=== PATIENT | male | born 1960 | race Caucasian/White ===

== ENCOUNTER → 2021-06-22 | Outpatient (CLI) | payer OTHER ==
--- NOTE | 2021-06-22 18:08 | MR ---
EXAMINATION TYPE: MR knee LT wo con DATE OF EXAM: 06/22/2021 COMPARISON: None HISTORY: lt knee pain The planar multiecho imaging of the left knee without contrast. There is metal artifact from intramedullary saige in the distal femur. The collateral ligaments are int act. The knee joint spaces are fairly normal for age. The anterior posterior cruciate ligaments are o bscured somewhat by metal artifact. I see no definite tear. There is no evidence of any significant j oint effusion. The patella tendon is intact. There is no evidence of a fracture. Medial and lateral m enisci show small areas of increased signal within the substance but no tear extending to the surface . Impression: Previous surgery. No evidence of ligament or meniscal tear. Degenerative changes in the menisci. No f racture seen.
== END | disposition home or self-care (01) ==
LOC: RADMRIMAIN 15:19
PROVIDERS: ATTEND Orthopaedic Surgery
DX: M17.12 Unilateral primary osteoarthritis, left knee (principal)

== ENCOUNTER 2022-05-29 20:35 | Inpatient (IN) | payer OTHER ==
[2022-05-29] MEDS ORDERED: SODIUM CHLORIDE 0.9% 1,000 ML IV STA (20:44)
[2022-05-29 21:26] LABS: Basophils % (A) 0 %; Eosinophils % (A) 0 %; HCT 28.2 % (39.0-53.0); HGB 9.7 gm/dL (13.0-17.5); Hypochromasia Slight; Lymphocytes % (A) 7 %; MCH 30.7 pg (25.0-35.0); MCHC 34.5 g/dL (31.0-37.0); MCV 89.1 fL (80.0-100.0); Mean Platelet Volume 10.3; Monocytes # (A) 1.3 k/uL (0-1.0); Monocytes % (A) 9 %; Neutrophils # (A) 11.1 k/uL (1.3-7.7); Neutrophils % (A) 82 %; Platelet Count 290 k/uL (150-450); Poikilocytosis Slight; RBC 3.16 m/uL (4.30-5.90); RDW 14.1 % (11.5-15.5); WBC 13.6 k/uL (3.8-10.6)
[2022-05-29 21:41] LABS: Partial Thromboplastin Time 42.3 sec (22.0-30.0); Prothrombin Time 82.8 sec (9.0-12.0)
--- NOTE | 2022-05-29 21:47 | XR ---
EXAMINATION: XR chest 1V portable DATE AND TIME: 05/29/2022 9:38 PM CLINICAL INDICATION: PHH; SOB TECHNIQUE: AP upright portable COMPARISON: None FINDINGS: The right and left hemidiaphragm are relatively elevated, consistent with low lung inflation at the m oment of x-ray exposure. Notwithstanding the relatively low lung inflation state, the lungs appear to be well expanded and dianna ar. The pleural spaces are negative. The cardiac silhouette appears borderline enlarged, but this is an AP image. The remainder of the med iastinal silhouette is unremarkable. The skeletal structures and soft tissues are negative for acute findings. IMPRESSION: NO ACUTE PROCESS.
[2022-05-29 21:53] LABS: Albumin 4.3 g/dL (3.5-5.0); Calcium 9.1 mg/dL (8.4-10.2); Magnesium 2.3 mg/dL (1.6-2.3); Potassium 5.4 mmol/L (3.5-5.1); Total Bilirubin 0.4 mg/dL (0.2-1.3); Total Protein 6.7 g/dL (6.3-8.2)
[2022-05-29 22:14] LABS: INR 8.1 (<1.2)
[2022-05-29] MEDS ORDERED: SODIUM CHLORIDE 0.9% 500 ML 500 ML IV STA (22:21)
[2022-05-29] MEDS ORDERED: HYDROmorphone 1 MG/ML 1 ML SYRINGE IVP STA (22:21)
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
[2022-05-29] MEDS ORDERED: NALOXONE 0.4 MG/ML 1 ML VIAL IV PRN (22:56)
[2022-05-29] MEDS ORDERED: HYDROcodone/APAP 5-325MG 1 EACH TAB PO PRN (22:58)
[2022-05-30] MEDS ORDERED: PHYTONADIONE ORAL 5 MG/5 ML ORAL.SYRG PO ONE (01:00)
[2022-05-30] MEDS: ACETAMINOPHEN TAB 325 MG TAB PO PRN ×2 (01:20→11:46)
--- NOTE | 2022-05-30 05:00 | CT ---
EXAMINATION TYPE: CT abdomen pelvis wo con DATE OF EXAM: 05/29/2022 COMPARISON: None HISTORY: abd pain. acute , nonlocalized CT DLP: 775.2 mGycm Automated exposure control for dose reduction was used. Images obtained from the diaphragm to the floor of the pelvis without contrast. There is subsegmental atelectasis at the lung bases. Heart is enlarged. No pericardial effusion. Liver spleen and stomach pancreas and gallbladder appear intact. The bile ducts are not dilated. There is no adrenal mass. There are small calcifications in the posterior liver. There is no adrenal mass. Kidneys have normal size. No hydronephrosis. There is stent in the inferior vena cava and common iliac and external iliac and proximal femoral veins. No retroperitoneal adenopa thy. The bladder distends smoothly. Ureters are not dilated. There is prostate calcification. No pelvic ma ss. No inguinal hernia. No free fluid in the pelvis. Appendix is lateral and appears normal. There is no mesenteric edema. No ascites or free air. No sign of a bowel obstruction. The lumbar vertebrae have normal alignment. No compression fracture. Posterior elements are intact th ere is vacuum disc at L4-5. No significant disc space narrowing the bony pelvis is intact. The hip amarjit ints are intact. There is intramedullary saige in the proximal left femur. IMPRESSION: No acute abnormality in the abdomen and pelvis. Normal appendix. Interstitial infiltrates and atelectasis at the lung bases. Mild cardiomegaly.
[2022-05-30] MEDS ORDERED: ATORVASTATIN 80 MG TAB PO SCH (09:00)
[2022-05-30] MEDS ORDERED: FOLIC ACID 1 MG TAB PO SCH (09:00)
[2022-05-30] MEDS ORDERED: METOPROLOL SUCCINATE (ER) 50 MG TAB.ER.24H PO SCH (09:00)
[2022-05-30] MEDS ORDERED: DILTIAZEM CD 120 MG CAP.ER.24H PO SCH (09:00)
[2022-05-30] MEDS ORDERED: NIFEdipine XL 90 MG TAB.ER.24 PO SCH (09:00)
[2022-05-30] MEDS ORDERED: NORTRIPTYLINE 25 MG CAP PO SCH (09:00)
[2022-05-30] MEDS ORDERED: predniSONE 20 MG TAB PO SCH (09:00)
[2022-05-30] MEDS ORDERED: CYANOCOBALAMIN 500 MCG TAB PO SCH (09:00)
[2022-05-30] MEDS ORDERED: ISOSORBIDE DINITRATE 10 MG TAB PO SCH (09:00)
[2022-05-30] MEDS ORDERED: COLCHICINE 0.6 MG EACH PO SCH (09:00)
[2022-05-30] MEDS ORDERED: PANTOPRAZOLE 40 MG TABLET PO SCH (09:00)
[2022-05-30] MEDS ORDERED: levETIRAcetam 500 MG TAB PO SCH (09:00)
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
--- NOTE | 2022-05-30 11:07 | XR ---
2 view abdomen HISTORY: Abdominal pain and shortness of breath 2 views the abdomen on [address] scan dated 05/29/2022 There is a inferior vena cava stent present coursing to the bilateral iliac regions. No evident bowel obstruction or pneumoperitoneum. Lung bases are clear. No pathologic calcification is evident. IMPRESSION: Postprocedural changes. No acute abnormality is evident.
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
[2022-05-30] MEDS: SODIUM CHLORIDE 0.9% 1,000 ML IV SCH ×2 (11:48)
--- NOTE | 2022-05-30 12:14 | P.PN ---
Progress Note - Text Discussed with Dr. Ruth I would recommend the patient be transferred to [facility] where he has received all his care including most recently when he was discharged Thursday He has a history of bilateral DVT in lower extremities that required open thrombectomy on 2 occasions His INR was high when he came in vitamin K was given This gentleman needs to be anticoagulated appropriately and quickly We are still waiting for his labs and PT/INR Dr. Ruth will be transferring to remote hospital and addressing his anticoagu lation I did speak to vascular surgery to and they will be seeing him today
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
[2022-05-30 12:42] LABS: Prothrombin Time 75.7 sec (9.0-12.0)
[2022-05-30 12:54] LABS: INR 7.4 (<1.2)
[2022-05-30 13:08] LABS: ALT 79 U/L (4-49); AST 72 U/L (17-59); African American GFR (CKD) 76 (>60 ml/min/1.73 sqM); Albumin 3.6 g/dL (3.5-5.0); Alkaline Phosphatase 144 U/L (38-126); Anion Gap 13 mmol/L; Blood Urea Nitrogen 39 mg/dL (9-20); Calcium 8.2 mg/dL (8.4-10.2); Carbon Dioxide 17 mmol/L (22-30); Chloride 100 mmol/L (98-107); Glucose 107 mg/dL (74-99); Non-African American GFR(CKD) 65 (>60 ml/min/1.73 sqM); Potassium 4.6 mmol/L (3.5-5.1); Sodium 130 mmol/L (137-145); Total Bilirubin 0.6 mg/dL (0.2-1.3); Total Protein 5.9 g/dL (6.3-8.2)
--- NOTE | 2022-05-30 13:25 | CA ---
Transthoracic Echo Report Name: Taj Post Age: 62 Gender: M : 1960 Exam Date: 05/30/2022 09:25 Exam Location: [facility] Ht (in): 72 Wt (lb): 195 Ordering Physician: Ramón Richey MD ([id number]) Attending/Referring Phys: Cottage Attendant Cynthia Hernandez RDCS Procedure CPT: Indications: SOB, history of pericardial window Cardiac Hx: Technical Quality: Good Contrast 1: Total Dose (mL): Contrast 2: Total Dose (mL): MEASUREMENTS (Male / Female) Normal Values 2D ECHO LV Diastolic Diameter PLAX 5.0 cm 4.2 - 5.9 / 3.9 - 5.3 cm LV Systolic Diameter PLAX 3.4 cm IVS Diastolic Thickness 1.1 cm 0.6 - 1.0 / 0.6 - 0.9 cm LVPW Diastolic Thickness 1.3 cm 0.6 - 1.0 / 0.6 - 0.9 cm LV Relative Wall Thickness 0.5 RV Internal Dim ED PLAX 3.2 cm LA Systolic Diameter LX 4.5 cm 3.0 - 4.0 / 2.7 - 3.8 cm M-MODE Aortic Root Diameter MM 3.0 cm LA Systolic Diameter MM 3.9 cm LA Ao Ratio MM 1.3 MV E Point Septal Separation 0.4 cm AV Cusp Separation MM 2.0 cm DOPPLER AV Peak Velocity 269.3 cm/s AV Peak Gradient 29.0 mmHg AV Mean Velocity 152.2 cm/s AV Mean Gradient 12.1 mmHg AV Velocity Time Integral 39.0 cm LVOT Peak Velocity 126.6 cm/s LVOT Peak Gradient 6.4 mmHg MV Area PHT 2.7 cm??? Mitral E Point Velocity 101.6 cm/s Mitral A Point Velocity 29.2 cm/s Mitral E to A Ratio 3.5 MV Deceleration Time 283.8 ms TR Peak Velocity 254.9 cm/s TR Peak Gradient 26.0 mmHg Right Ventricular Systolic Press 30.1 mmHg FINDINGS Left Ventricle Left ventricular ejection fraction is estimated at 55 %. Right Ventricle Normal right ventricular size and function. Right Atrium Moderate right atrial dilatation. Left Atrium Mildly increased left atrial diameter. Mildly increased left atrial area. Mitral Valve Mitral annular calcification. Mild mitral regurgitation. Aortic Valve Trileaflet aortic valve. Aortic valve sclerosis. Tricuspid Valve 0.6cm echodensity on the tricuspid valve which may represnt endocarditis. Recommend YASIR if clinically indicated. Severe tricuspid regurgitation. Pulmonic Valve Structurally normal pulmonic valve. Pericardium Normal pericardium. Aorta Normal size aortic root and proximal ascending aorta. CONCLUSIONS Left ventricular ejection fraction 55% Mildly dilated left atrium Moderately dilated right atrium Moderate to severe tricuspid regurgitation 0.6cm echodensity on the tricuspid valve which may represnt endocarditis. Recommend YASIR if clinically indicated. No pericardial effusion Previewed by: Dr. Will Herrera DO (Electronically Signed) Final Date: 30 May 2022 13:24
[2022-05-30] MEDS: SODIUM BICARBONATE TAB 650 MG TAB PO SCH ×2 (13:51→16:32)
[2022-05-30 15:31] VITALS: RESP 16
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
[2022-05-30 16:31] VITALS: BP 113/67; PULSE 60; TEMP 98
--- NOTE | 2022-05-30 16:46 | US ---
EXAMINATION TYPE: US kidneys/renal and bladder DATE OF EXAM: 05/30/2022 COMPARISON: NONE CLINICAL HISTORY: Evaluate for CK D. abn labs, patient has gassy, distended abd. EXAM MEASUREMENTS: Right Kidney: 9.6 x 4.2 x 5.5 cm Left Kidney: not seen Right Kidney: very limited images due to gas Left Kidney: overlying bowel gas completely obscures renal Bladder: wnl Bilateral Jets seen: left There is no evidence for hydronephrosis at this point in time. No nephrolithiasis is seen. No guevara s are identified. The urinary bladder is anechoic. Bilateral ureteral jets are seen. IMPRESSION: Right kidney is visualized with no evidence of mass or obstruction. Left kidney not seen. There is left-sided ureteral jet in the urinary bladder. No evidence of bladder mass.
[2022-05-30 17:42] LABS: Appearance,Urine Clear (Clear); Bilirubin,Urine Negative (Negative); Blood,Urine Large (Negative); Color,Urine Light Yellow; Glucose,Urine (UA) 2+ (Negative); Ketones,Urine Negative (Negative); Leukocyte Esterase,Urine Negative (Negative); Nitrite,Urine Negative (Negative); PH, Urine 5.5 (5.0-8.0); Protein,Urine Trace (Negative); RBC,Urine 11 /hpf (0-5); Specific Gravity,Urine 1.016 (1.001-1.035); Squamous Epithelial Cell,Urine <1 /hpf (0-4); Urobilinogen,Urine <2.0 mg/dL (<2.0); WBC,Urine 1 /hpf (0-5)
[2022-05-30 18:06] LABS: Prothrombin Time 40.1 sec (9.0-12.0)
--- NOTE | 2022-05-30 18:55 | US ---
EXAMINATION TYPE: US venous doppler duplex LE DATE OF EXAM: 05/30/2022 4:30 PM COMPARISON: NONE CLINICAL HISTORY: Pt with recent hx DVT, b/l LE edema. h/o multiple DVT's, stenting within bilat cfv and prox femoral veins, on thinners, patient states no symptoms SIDE PERFORMED: Bilateral TECHNIQUE: The lower extremity deep venous system is examined utilizing real time linear array sonog tyshawn with graded compression, doppler sonography and color-flow sonography. VESSELS IMAGED: Common Femoral Vein Deep Femoral Vein Greater Saphenous Vein * Femoral Vein Popliteal Vein Small Saphenous Vein * Proximal Calf Veins (* superficial vessels) Right Leg: Chronic appearance within femoral vein, popiteal vein, and peroneals, good blood flow det ected Left Leg: Chronic appearance to femoral vein with collaterals seen near dfv juntion but no flow in n ative FV does not appear acute IMPRESSION: No evidence of acute deep vein thrombosis. 

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
--- NOTE | 2022-06-01 11:01 | CDI ---
Documentation Clarification Form Date: 06/01/2022 10:45:59 AM From: Ligia Ferris Admit Date: 05/29/2022 11:00:00 PM Patient Name: Taj Post Visit Number: [id number] Discharge Date: 05/30/2022 07:17:00 PM ATTENTION: The Clinical Documentation Specialists (CDI) and [facility] Coding Staff appreciate your assistance in clarifying documentation. Please respond to the clarification below the line at the bottom and electronically sign. The CDI & [facility] Coding staff will review the response and follow-up if needed. Please note: Queries are made part of the Legal Health Record. If you have any questions, please contact the author of this message via ITS. Dr. Timo Ruth Your patient has the documented diagnosis of unspecified CHF per Consult 05/30/22. Additional information regarding the type and acuity of CHF is requested. History/Risk Factors: 62yo M, Hyperkalemia, long COVID, chronic epilepsy disorder, HLD, HTN, GERD, ATN, Coumadin toxicity Clinical Indicators: VS/Pulse OX: 98 Echocardiogram Results: Left ventricular ejection fraction 55%; mildly dilated left atrium moderately dilated right atrium; Moderate to severe TR, MR and ; 0.6cm echo density on the tricuspid valve which may represent endocarditis. EF 55% Chest x ray: The right and left hemidiaphragm are relatively elevated, consistent with low lung inflation at the moment of x-ray exposure. Notwithstanding the relatively low lung inflation state, the lungs appear to be well expanded and clear. The pleural spaces are negative. The cardiac silhouette appears borderline enlarged, but this is an AP image. The remainder of the mediastinal silhouette is unremarkable. The skeletal structures and soft tissues are negative for acute findings. Treatment: Patient's shortness of breath was treated at [facility] last week but became more severe at home and that is the primary reason for him to come back to the hospital. Cardiology following and is recommending transfer. In your professional opinion, can you please clarify the acuity and type of CHF if known? [ ] Chronic Systolic Heart Failure (reduced EF) [ ] Acute on Chronic Systolic Heart Failure (reduced EF) [ ] Chronic Diastolic Heart Failure (preserved EF) [ ] Acute on Chronic Diastolic Heart Failure (preserved EF) [ ] Chronic Systolic & Diastolic Heart Failure [ ] Acute on Chronic Heart Failure Systolic & Diastolic Heart Failure [ ] Other, please specify [ ] Unable to determine Not aware. Query cardiology who are on the case MTDD
--- NOTE | 2022-06-06 10:11 | CDI ---
Documentation Clarification Form Date: 06/06/2022 10:06 AM From: Ligia Ferris Phone: Admit Date: 05/29/2022 11:00:00 PM Patient Name: Taj Post Visit Number: [id number] Discharge Date: 05/30/2022 07:17:00 PM ATTENTION: The Clinical Documentation Specialists (CDI) and [facility] Coding Staff appreciate your assistance in clarifying documentation. Please respond to the clarification below the line at the bottom and electronically sign. The CDI & [facility] Coding staff will review the response and follow-up if needed. Please note: Queries are made part of the Legal Health Record. If you have any questions, please contact the author of this message via ITS. Dr. Ramón Richey Your patient has the documented diagnosis of unspecified CHF per Consult 05/30/22. Additional information regarding the type and acuity of CHF is requested. History/Risk Factors: 62yo M, Hyperkalemia, long COVID, chronic epilepsy disorder, HLD, HTN, GERD, ATN, Coumadin toxicity Clinical Indicators: VS/Pulse OX: 98 Echocardiogram Results: Left ventricular ejection fraction 55%; mildly dilated left atrium moderately dilated right atrium; Moderate to severe TR, MR and ; 0.6cm echo density on the tricuspid valve which may represent endocarditis. EF 55% Chest x ray: The right and left hemidiaphragm are relatively elevated, consistent with low lung inflation at the moment of x-ray exposure. Notwithstanding the relatively low lung inflation state, the lungs appear to be well expanded and clear. The pleural spaces are negative. The cardiac silhouette appears borderline enlarged, but this is an AP image. The remainder of the mediastinal silhouette is unremarkable. The skeletal structures and soft tissues are negative for acute findings. Treatment: Patient's shortness of breath was treated at [facility] last week but became more severe at home and that is the primary reason for him to come back to the hospital. Cardiology following and is recommending transfer. In your professional opinion, can you please clarify the acuity and type of CHF if known? [ ] Chronic Systolic Heart Failure (reduced EF) [ ] Acute on Chronic Systolic Heart Failure (reduced EF) [ ] Chronic Diastolic Heart Failure (preserved EF) [ ] Acute on Chronic Diastolic Heart Failure (preserved EF) [ ] Chronic Systolic & Diastolic Heart Failure [ ] Acute on Chronic Heart Failure Systolic & Diastolic Heart Failure [ ] Other, please specify [ ] Unable to determine (Template Last Revised: September 2020) Unable to determine MTDD
== END 2022-05-30 19:17 | disposition short-term general hospital (02) | DRG 314 ==
LOC: EC 20:35 → 3SCARD 23:00
PROVIDERS: ADMIT Hospitalist; ATTEND Hospitalist
DX: I95.9 Hypotension, unspecified (principal); N17.0 Acute kidney failure with tubular necrosis; I82.513 Chronic embolism and thrombosis of femoral vein, bilateral; D68.61 Antiphospholipid syndrome; I11.0 Hypertensive heart disease with heart failure; I50.9 Heart failure, unspecified; K76.1 Chronic passive congestion of liver; G40.909 Epilepsy, unspecified, not intractable, without status epilepticus; D64.9 Anemia, unspecified; Z95.820 Peripheral vascular angioplasty status with implants and grafts; I08.3 Combined rheumatic disorders of mitral, aortic and tricuspid valves; I48.91 Unspecified atrial fibrillation; R00.1 Bradycardia, unspecified; T45.511A Poisoning by anticoagulants, accidental (unintentional), initial encounter; T45.515A Adverse effect of anticoagulants, initial encounter; U09.9 Post COVID-19 condition, unspecified; E78.5 Hyperlipidemia, unspecified; K21.9 Gastro-esophageal reflux disease without esophagitis; E87.5 Hyperkalemia; D72.829 Elevated white blood cell count, unspecified; R60.0 Localized edema; R10.10 Upper abdominal pain, unspecified; Z28.310 Unvaccinated for COVID-19; Z79.899 Other long term (current) drug therapy; Z79.01 Long term (current) use of anticoagulants; Z79.52 Long term (current) use of systemic steroids; Z86.79 Personal history of other diseases of the circulatory system; Z86.711 Personal history of pulmonary embolism
CPT/HCPCS: 36415; 71045; 74019; 74176; 76770; 80053; 81001; 83690; 83735; 84439; 84443; 84484; 85025; 85610; 85730; 87635; 93005; 93306; 93970; 96361; 96374; 99291